=== PATIENT | male | born 1950 | race Two or more races ===

== ENCOUNTER 2020-06-01 14:55 | Inpatient (IN) | payer OTHER, MEDICAID ==
[~2020-06-01] VITALS: Ht 167.6 cm; Wt 104.0 kg
[2020-06-01 22:25] LABS: Basophils # (auto) 0 10 ^3/uL (0-0.2); Basophils % (auto) 0.3 % (0.0-2.0); Eosinophils # (auto) 0.1 10 ^3/uL (0-0.8); Eosinophils % (auto) 1.5 % (0.0-7.0); Hemoglobin 12.8 g/dL (13.5-17.5); Lymphocytes # (auto) 0.6 10 ^3/uL (0.4-5.4); Lymphocytes % (auto) 13.4 % (10.0-50.0); Mean Corpuscular Hemoglobin 35.5 pg (28.0-32.0); Mean Corpuscular Hgb Conc. 33.7 g/dL (32.0-36.0); Mean Corpuscular Volume 105.5 fL (80.0-100.0); Monocytes # (auto) 0.7 10 ^3/uL (0-1.3); Monocytes % (auto) 14.8 % (0.0-12.0); Neutrophils # (auto) 3.3 10 ^3/uL (1.6-8.6); Nucleated Red Blood Cells % 0.1 %; Platelet Count (auto) 103 10^3/uL (140-450); Red Blood Cells 3.61 10^6/uL (4.5-5.90); Red Cell Distribution Width 15.1 % (11.8-14.3); White Blood Cell 4.7 10^3/uL (4.4-10.8)
[2020-06-01 22:41] LABS: Albumin 2.7 g/dL (3.4-5.0); Anion Gap 5 (5-15); Blood Urea Nitrogen 50 mg/dL (7-18); Calcium 9.5 mg/dL (8.5-10.1); Carbon Dioxide 32 mmol/L (21-32); Chloride 93 mmol/L (98-107); Glucose 221 mg/dL (74-106); Sodium 130 mmol/L (136-145)
[2020-06-01 22:43] LABS: BUN/Creatinine Ratio 21.3; GFR African American 35 mL/min; GFR Non-African American 29 mL/min
[2020-06-01 22:49] LABS: Alanine Aminotransferase 41 U/L (16-61); Alkaline Phosphatase 237 U/L (45-117); Aspartate Aminotransferase 62 U/L (15-37); Bilirubin, Total 2.1 mg/dL (0.2-1.0); Total Protein 6.5 g/dL (6.4-8.2)
[2020-06-01 23:13] LABS: INR 1.19 (0.9-1.15)
[2020-06-02] MEDS ORDERED: MORPHINE SULF INJ 2 MG/ML SYRINGE 1ML IV PRN (00:45)
[2020-06-02] MEDS ORDERED: NITROGLYCERIN 0.4 MG SL TAB SL PRN (00:45)
[2020-06-02] MEDS ORDERED: ONDANSETRON HCL 4 MG/2 ML VIAL IV PRN (00:45)
[2020-06-02 01:24] LABS: Lactic Acid w/Reflex 2.8 mmol/L (0.4-2.0)
[2020-06-02 01:29] LABS: Magnesium 2.5 mg/dL (1.6-2.6)
[2020-06-02 01:38] LABS: CRP High Sensitivity 6.55 mg/dL (< 0.3)
[2020-06-02] MEDS ORDERED: LACTULOSE 20Gm/30ML SOLN PO ONE (04:45)
--- NOTE | 2020-06-02 06:50 | NUR ---
Respiratory note: SEEN PT AT THIS TIME, FOUND PATIENT ON ROOM AIR, SLEEPING, NO DISTRESS. HR 93, RR 16, SPO2 86%. NO MDI'S AT BEDSIDE. WILL CALL PHARMACY
[2020-06-02] MEDS: ENOXAPARIN SOD 40 MG/0.4 ML SYRINGE SC SCH (11:40)
[2020-06-02] MEDS: DOXYCYCLINE 100MG/250ML 250 ML IV SCH ×2 (11:46→22:00)
[2020-06-02] MEDS: LACTULOSE 20Gm/30ML SOLN PO SCH (11:46)
[2020-06-02] MEDS: ASCORBIC ACID 1,000 MG TAB PO SCH (11:46)
[2020-06-02] MEDS: DexAMETHasone SOD PHOS 10MG/1ML VIAL INJ IV SCH (11:46)
--- NOTE | 2020-06-02 12:20 | NUR ---
WOUND CARE NOTE: IN TO SEE PATIENT AT THIS TIME PER WOUND CARE CONSULT REQUEST. PATIENT ADMITTED TO [facility] WITH DIAGNOSIS OF PNA, METABOLIC ENCEPHALOPATHY. CURRENT ELSA SCORE ASSESSED AT 10. PATIENT NOTED UPON ADMIT TO HAVE WOUNDS. WOUND CONSULT ORDERED. PATIENT IS INCONTINENT, WITH BROWN LIQUID STOOL NOTED, FOLLOWING ADMINISTRATION OF LACTULOSE PER MD ORDER. PERICARE/LINEN CHANGE GIVEN. PATIENT NOTED TO HAVE AN OLD SKIN TEAR TO THE RIGHT FOREARM, THAT IS RE-EPITHELIZING. APPLIED THERAHONEY, OPTIFOAM GENTLE DRESSING. PATIENT IS NOTED TO HAVE MILD MASD TO INTRAGLUTEAL SKIN. HE HAS A PARTIAL THICKNESS PRESSURE INJURY TO THE RIGHT SACRUM. APPLIED ZGUARD, OPTIFOAM GENTLE SACRAL DRESSING. WOUND PHOTOS TAKEN AT THIS TIME PER PROTOCOL. NO OTHER SKIN INTEGRITY ISSUES NOTED, SKIN/WOUND CARE PLAN IMPLEMENTED. RECOMMEND: FREQUENT TURN SCHEDULE Q 2 HOURS, PRN CONDITION PERMITS, WITH PRESSURE REDISTRIBUTION USING PILLOWS/WEDGES, HOSPITAL BED WHEN ONE BECOMES AVAILABLE; EOD/PRN DRESSING CHANGE TO RIGHT FOREARM; BID/PRN APPLICATION ZGUARD/OPTIFOAM GENTLE SACRAL DRESSING TO SACRAL WOUND; DIETARY CONSULT, SKIN/WOUND CARE PLAN, CONTINUED MONITORING BY WOUND CARE TEAM. Addendum: 06/02/20 at 1619 by Chitra Weathers RN Amended: Links added.
[2020-06-02] MEDS: CHOLECALCIFEROL (VITD3) 2,000 UNIT CAP PO SCH (14:37)
[2020-06-02] MEDS ORDERED: ZINC SULFATE 220mg CAP or TAB PO ONE (16:00)
[2020-06-02] MEDS ORDERED: FAMOTIDINE 20 MG TAB PO ONE (16:00)
[2020-06-02] MEDS ORDERED: DEXTROSE (50%) 50ML SYRG IV PRN (16:00)
[2020-06-02] MEDS: InsuLIN REG 1unit/0.01ml Soln (100units/ml) SC SCH (17:50)
[2020-06-02] MEDS: ACCU-CHEK COMFORT CURVE STRIP VI SCH (18:00)
[2020-06-02 23:45] VITALS: BP 110/65
--- NOTE | 2020-06-02 23:45 | NUR ---
Telemetry admit from ER CYNTHIA HICKMAN admitted to Telemetry unit after SBAR received. Patient oriented to SACHA LOBATO, RN primary RN, unit, room, bed, and unit policies regarding patient care and visiting hours. Patient now on continuous telemetry monitoring, tele box # 3 and telemetry reading on arrival to unit is SR-99. Patient placed on bedside oxygen (2L), weighed by bedscale and encouraged to call if they need something. Patient AOx1.
--- NOTE | 2020-06-03 | NUR ---
Admission Patient was not able to respond to admission question due to AOx1. Some admission question answered by H&P. Will endorse information to dayshift nurse.
[2020-06-03] MEDS: InsuLIN REG 1unit/0.01ml Soln (100units/ml) SC SCH ×4 (00:40→17:32)
[2020-06-03] MEDS: ACCU-CHEK COMFORT CURVE STRIP VI SCH ×4 (00:40→17:18)
[2020-06-03 05:00] VITALS: BP 100/58
--- NOTE | 2020-06-03 06:00 | NUR ---
Markham catheter insertion Patient assessed and determined to be in need of markham catheter. Order obtained from MD. Patient educated on catheter and reason for insertion. All questions answered. Markham catheter guage Kazakh inserted with clean sterile technique. Patient tolerated well.
--- NOTE | 2020-06-03 06:20 | NUR ---
UA Urine sample collected and sent to lab.
[2020-06-03 06:52] LABS: Urine WBC None Seen /hpf (0 - 3)
[2020-06-03 06:58] LABS: Basophils # (auto) 0 10 ^3/uL (0-0.2); Basophils % (auto) 0.1 % (0.0-2.0); Eosinophils # (auto) 0 10 ^3/uL (0-0.8); Hemoglobin 11.2 g/dL (13.5-17.5); INR 1.29 (0.9-1.15); Lymphocytes # (auto) 0.3 10 ^3/uL (0.4-5.4); Mean Corpuscular Hemoglobin 36.3 pg (28.0-32.0); Monocytes # (auto) 0.3 10 ^3/uL (0-1.3); Neutrophils # (auto) 2.8 10 ^3/uL (1.6-8.6); Nucleated Red Blood Cells % 0.1 %; Partial Thromboplastin Time 29.2 sec (23.0-31.2); White Blood Cell 3.4 10^3/uL (4.4-10.8)
[2020-06-03 07:02] LABS: Hematocrit 32.7 % (41.0-53.0); Lymphocytes % (auto) 9.2 % (10.0-50.0); Mean Corpuscular Hgb Conc. 34.3 g/dL (32.0-36.0); Mean Corpuscular Volume 105.9 fL (80.0-100.0); Monocytes % (auto) 8.7 % (0.0-12.0); Platelet Count (auto) 90 10^3/uL (140-450); Red Blood Cells 3.09 10^6/uL (4.5-5.90); Red Cell Distribution Width 15.2 % (11.8-14.3)
[2020-06-03 07:03] LABS: Potassium 4.7 mmol/L (3.5-5.1)
[2020-06-03 07:06] LABS: Urine Bacteria FEW /hpf (None Seen); Urine Blood Negative /uL (Negative); Urine Hyaline Cast MANY /lpf (0 - 2); Urine Specific Gravity 1.015 (1.001-1.035)
[2020-06-03 07:13] LABS: Albumin 2.4 g/dL (3.4-5.0); BUN/Creatinine Ratio 24.4; Calcium 9.9 mg/dL (8.5-10.1); Total Protein 6.1 g/dL (6.4-8.2)
[2020-06-03] MEDS: ALBUTEROL SULF HFA 90MCG INH 200DOSE IN PRN ×2 (07:23→21:48)
[2020-06-03 07:29] LABS: Alcohol, Urine < 3.0 mg/dL (0-10); Amphetamine Screen, Urine NEGATIVE (NEGATIVE); Barbiturate Scree,Urine NEGATIVE (NEGATIVE); Benzodiazephine Screen, Urine NEGATIVE (NEGATIVE); Cannabinoid Screen, Urine NEGATIVE (NEGATIVE); Cocaine Screen, Urine NEGATIVE (NEGATIVE); Opiate Scree,Urine POSITIVE (NEGATIVE); Phencyclidine Screen, Urine NEGATIVE (NEGATIVE)
--- NOTE | 2020-06-03 08:00 | NUR ---
OPENING SHIFT NOTE ASSUMED CARE OF PATIENT AWAKE AND ALERT TO SELF. PATIENT IS FOUND NAKED, WITH TELEMETRY BOX AND OXYGEN REMOVED. PATIENT RECONNECTED TO EVERYTHING AND REPOSITIONED FOR COMFORT. ATTEMPTED TO EDUCATE IMPORTANCE OF COMPLYING WITH OXYGEN THERAPY AND TELEMETRY MONITORING. BED IS IN LOWEST, LOCKED POSITION WITH SIDE RAILS UP X3, CALL LIGHT WITHIN REACH, AND BED ALARM ON FOR SAFETY. WILL CONTINUE TO MONITOR Q1H AND PRN.
--- NOTE | 2020-06-03 08:30 | NUR ---
SPOKE WITH FAMILY SPOKE WITH SON STEPHANIE. ALL QUESTIONS ANSWERED, VERBALIZED UNDERSTANDING.
[2020-06-03] MEDS: ENOXAPARIN SOD 40 MG/0.4 ML SYRINGE SC SCH (10:00)
[2020-06-03] MEDS: LACTULOSE 20Gm/30ML SOLN PO SCH (10:00)
[2020-06-03] MEDS: DOXYCYCLINE 100MG/250ML 250 ML IV SCH ×2 (10:54→22:01)
[2020-06-03] MEDS: FAMOTIDINE 20 MG TAB PO SCH (10:54)
[2020-06-03] MEDS: ZINC SULFATE 220mg CAP or TAB PO SCH (10:54)
[2020-06-03] MEDS: DexAMETHasone SOD PHOS 10MG/1ML VIAL INJ IV SCH (10:54)
[2020-06-03] MEDS: ASCORBIC ACID 1,000 MG TAB PO SCH (10:54)
[2020-06-03] MEDS: CHOLECALCIFEROL (VITD3) 2,000 UNIT CAP PO SCH (10:55)
[2020-06-03 13:00] VITALS: BP 127/58
--- NOTE | 2020-06-03 13:13 | NUR ---
Nutrition Assessment/Consult Notes Please refer to link for full assessment notes. Est Energy needs: 4586-6778 kcals (14-18 kcal/kgBW) Est Protein needs: 102-112 gms/day (1.0-1.1 gm/kgBW) Will continue to monitor and reassess prn. Addendum: 06/03/20 at [address] Amended: Links added.
[2020-06-03 17:00] VITALS: BP 111/54
--- NOTE | 2020-06-03 20:00 | NUR ---
Opening Shift Note Assumed care of patient, awake and alert to self. Reoriented patient to place, time, and situation, will continue to reorient patient as needed and throughout shift. Instructed on plan of care and encouraged patient to call for assistance as needed, will continue to reinforce education. Patient is on 2L/min NC, no sign/symptoms of distress noted or verbalized at this time. Bed is locked in lowest position, side rails x 3 are up, call light is within reach, bed alarm is on, and sitter at the bedside for safety precautions.
[2020-06-03 21:00] VITALS: BP 112/62
[2020-06-04] MEDS: InsuLIN REG 1unit/0.01ml Soln (100units/ml) SC SCH ×4 (00:51→17:00)
[2020-06-04 05:00] VITALS: BP 137/95
[2020-06-04] MEDS: ACCU-CHEK COMFORT CURVE STRIP VI SCH ×4 (05:36→17:00)
[2020-06-04 05:55] LABS: Basophils # (auto) 0 10 ^3/uL (0-0.2); Eosinophils # (auto) 0 10 ^3/uL (0-0.8); Hemoglobin 11.6 g/dL (13.5-17.5); Lymphocytes # (auto) 0.4 10 ^3/uL (0.4-5.4); Lymphocytes % (auto) 6.3 % (10.0-50.0); Monocytes # (auto) 0.4 10 ^3/uL (0-1.3); Neutrophils # (auto) 5.2 10 ^3/uL (1.6-8.6)
--- NOTE | 2020-06-04 06:00 | NUR ---
Wound Care Wound care performed to sacrum and right forearm as ordered by MD. Patient tolerated well.
[2020-06-04 06:06] LABS: Basophils % (auto) 0.1 % (0.0-2.0); Hematocrit 34.7 % (41.0-53.0); Mean Corpuscular Hemoglobin 35.2 pg (28.0-32.0); Mean Corpuscular Hgb Conc. 33.3 g/dL (32.0-36.0); Mean Corpuscular Volume 105.6 fL (80.0-100.0); Monocytes % (auto) 6.3 % (0.0-12.0); Neutrophils % (auto) 87.3 % (37.0-80.0); Nucleated Red Blood Cells % 0.2 %; Platelet Count (auto) 125 10^3/uL (140-450); Red Blood Cells 3.29 10^6/uL (4.5-5.90); Red Cell Distribution Width 15.5 % (11.8-14.3)
[2020-06-04 06:18] LABS: Potassium 5.3 mmol/L (3.5-5.1)
[2020-06-04 06:23] LABS: Albumin 2.7 g/dL (3.4-5.0); BUN/Creatinine Ratio 27.1; Calcium 10.2 mg/dL (8.5-10.1)
[2020-06-04 06:36] LABS: Bilirubin, Total 1.9 mg/dL (0.2-1.0); Total Protein 6.5 g/dL (6.4-8.2)
[2020-06-04] MEDS: ALBUTEROL SULF HFA 90MCG INH 200DOSE IN PRN ×2 (06:44→19:34)
[2020-06-04] MEDS: ASCORBIC ACID 1,000 MG TAB PO SCH (10:34)
[2020-06-04] MEDS: ZINC SULFATE 220mg CAP or TAB PO SCH (10:34)
[2020-06-04] MEDS: LACTULOSE 20Gm/30ML SOLN PO SCH (10:34)
[2020-06-04] MEDS: DexAMETHasone SOD PHOS 10MG/1ML VIAL INJ IV SCH (10:34)
[2020-06-04] MEDS: DOXYCYCLINE 100MG/250ML 250 ML IV SCH (10:34)
[2020-06-04] MEDS: FAMOTIDINE 20 MG TAB PO SCH (10:34)
[2020-06-04] MEDS: CHOLECALCIFEROL (VITD3) 2,000 UNIT CAP PO SCH (10:35)
[2020-06-04] MEDS: ENOXAPARIN SOD 40 MG/0.4 ML SYRINGE SC SCH (10:35)
--- NOTE | 2020-06-04 11:02 | NUR ---
Assessment Patient is a 70 year old male, patient was unable to speak with SW, SW called son Osei soto ([phone]). Per Osei soto, patient is alert and oriented prior to being admitted to [facility]. Per Osei soto, patient cognitive abilities are intact. Per Osei soto, patient need assistance with ADL's and ambulates with a walker. Per Osei soto, patient is a diabetic. Per Osei soto, patient is retired and receives social security as income. Per Osei soto, patient was receiving home health nurse three times a week from the [place]. Per Osei soto, patient will return home post discharge, patient has ([employer]) as transportation, patient needs 24-48 hours prior to discharge to set up transportation needs for post discharge. Per Osei soto, is requesting Advance Directive forms for patient. Discharge planning: Patient will return home post discharge, patient will follow up care with his PCP post discharge. Patient has all diabetic supplies for home care post discharge. SW will provide patient with Advance Directive forms prior to discharge. CM will verify eligibility for patient transportation with [employer] 24 - 48 hours prior to discharge and arrange pick remover time. Addendum: 06/04/20 at 1113 by VIBHA LI Amended: Links added.
[2020-06-04] MEDS: AZITHROMYCIN 500MG/ 250ML 250 ML IV SCH (17:07)
[2020-06-04] MEDS: cefTRIAXone 1GM/50ML D5W 50 ML IV SCH (17:08)
[2020-06-04 22:00] VITALS: BP 115/76
[2020-06-05] MEDS: InsuLIN REG 1unit/0.01ml Soln (100units/ml) SC SCH ×4 (00:03→17:47)
[2020-06-05] MEDS: ACCU-CHEK COMFORT CURVE STRIP VI SCH ×4 (00:03→17:46)
[2020-06-05 05:00] VITALS: BP 111/64
[2020-06-05] MEDS: ALBUTEROL SULF HFA 90MCG INH 200DOSE IN PRN (06:29)
[2020-06-05 09:00] VITALS: BP 130/66
[2020-06-05] MEDS: cefTRIAXone 1GM/50ML D5W 50 ML IV SCH (10:24)
[2020-06-05] MEDS: ASCORBIC ACID 1,000 MG TAB PO SCH (10:25)
[2020-06-05] MEDS: FAMOTIDINE 20 MG TAB PO SCH (10:25)
[2020-06-05] MEDS: ZINC SULFATE 220mg CAP or TAB PO SCH (10:25)
[2020-06-05] MEDS: ENOXAPARIN SOD 40 MG/0.4 ML SYRINGE SC SCH (10:25)
[2020-06-05] MEDS: CHOLECALCIFEROL (VITD3) 2,000 UNIT CAP PO SCH (10:25)
[2020-06-05] MEDS: LACTULOSE 20Gm/30ML SOLN PO SCH (10:25)
[2020-06-05] MEDS: AZITHROMYCIN 500MG/ 250ML 250 ML IV SCH (10:25)
[2020-06-05] MEDS: DexAMETHasone SOD PHOS 10MG/1ML VIAL INJ IV SCH (10:26)
[2020-06-05 11:46] LABS: Basophils # (auto) 0 10 ^3/uL (0-0.2); Basophils % (auto) 0.1 % (0.0-2.0); Eosinophils # (auto) 0 10 ^3/uL (0-0.8); Hematocrit 35.9 % (41.0-53.0); Lymphocytes # (auto) 0.3 10 ^3/uL (0.4-5.4); Lymphocytes % (auto) 5.3 % (10.0-50.0); Mean Corpuscular Hemoglobin 35.7 pg (28.0-32.0); Mean Corpuscular Hgb Conc. 33.5 g/dL (32.0-36.0); Mean Corpuscular Volume 106.5 fL (80.0-100.0); Monocytes # (auto) 0.5 10 ^3/uL (0-1.3); Monocytes % (auto) 8.4 % (0.0-12.0); Neutrophils # (auto) 4.7 10 ^3/uL (1.6-8.6); Neutrophils % (auto) 86.2 % (37.0-80.0); Nucleated Red Blood Cells % 0.1 %; Platelet Count (auto) 106 10^3/uL (140-450); Red Blood Cells 3.37 10^6/uL (4.5-5.90); Red Cell Distribution Width 15.4 % (11.8-14.3); White Blood Cell 5.4 10^3/uL (4.4-10.8)
[2020-06-05 11:58] LABS: Potassium 4.8 mmol/L (3.5-5.1)
[2020-06-05 12:04] LABS: BUN/Creatinine Ratio 25.6; Calcium 10.4 mg/dL (8.5-10.1)
[2020-06-05] MEDS ORDERED: TAM04C PO (12:58)
[2020-06-05] MEDS ORDERED: INSU1INJ26 SC (12:58)
[2020-06-05] MEDS ORDERED: CARV3.1240 PO (12:59)
[2020-06-05] MEDS ORDERED: SPIR50TA2 PO (12:59)
[2020-06-05 13:00] VITALS: BP 118/67
[2020-06-05] MEDS ORDERED: FURO1TAB31 PO (13:00)
[2020-06-05] MEDS ORDERED: DEXTROSE (50%) 50ML SYRG IV PRN (14:30)
[2020-06-05 17:00] VITALS: BP 90/74
[2020-06-05] MEDS: INSULIN 70/30 1unit/0.01ml Susp (100units/ml) SC SCH (17:48)
[2020-06-05] MEDS: TAMSULOSIN HYDROCHLORIDE 0.4 MG CAP PO SCH (18:27)
--- NOTE | 2020-06-05 19:30 | NUR ---
Opening Shift Note Assumed care of patient, awake and alert. No S/S of distress/SOB or pain. Instructed on POC and to call for assist PRN, will continue to monitor for changes Q1hr and PRN.
[2020-06-05 20:00] VITALS: BP 124/64
[2020-06-06] MEDS: ACCU-CHEK COMFORT CURVE STRIP VI SCH ×4 (00:38→17:46)
[2020-06-06] MEDS: InsuLIN REG 1unit/0.01ml Soln (100units/ml) SC SCH ×4 (00:38→18:06)
[2020-06-06 07:41] LABS: Albumin 2.7 g/dL (3.4-5.0); Calcium 11.1 mg/dL (8.5-10.1)
[2020-06-06 07:44] LABS: BUN/Creatinine Ratio 28.7; Total Protein 6.6 g/dL (6.4-8.2)
[2020-06-06 08:24] LABS: Basophils # (auto) 0 10 ^3/uL (0-0.2); Basophils % (auto) 0.1 % (0.0-2.0); Eosinophils # (auto) 0 10 ^3/uL (0-0.8); Hemoglobin 12.4 g/dL (13.5-17.5); Lymphocytes # (auto) 0.3 10 ^3/uL (0.4-5.4); Mean Corpuscular Volume 106.2 fL (80.0-100.0); Monocytes # (auto) 0.4 10 ^3/uL (0-1.3); Neutrophils # (auto) 4.2 10 ^3/uL (1.6-8.6); Nucleated Red Blood Cells % 0.2 %; Platelet Count (auto) 99 10^3/uL (140-450); White Blood Cell 4.9 10^3/uL (4.4-10.8)
[2020-06-06 08:26] LABS: Hematocrit 37.7 % (41.0-53.0); Lymphocytes % (auto) 7.1 % (10.0-50.0); Mean Corpuscular Hemoglobin 34.8 pg (28.0-32.0); Mean Corpuscular Hgb Conc. 32.8 g/dL (32.0-36.0); Monocytes % (auto) 7.6 % (0.0-12.0); Neutrophils % (auto) 85.2 % (37.0-80.0); Red Blood Cells 3.55 10^6/uL (4.5-5.90); Red Cell Distribution Width 15.2 % (11.8-14.3)
[2020-06-06] MEDS: cefTRIAXone 1GM/50ML D5W 50 ML IV SCH (08:41)
[2020-06-06] MEDS: INSULIN 70/30 1unit/0.01ml Susp (100units/ml) SC SCH ×2 (08:41→18:07)
[2020-06-06 09:00] VITALS: BP_SYST 117; BP_SYST 133; BP_DIAS 67; BP_DIAS 68
[2020-06-06] MEDS: FAMOTIDINE 20 MG TAB PO SCH (10:20)
[2020-06-06] MEDS: LACTULOSE 20Gm/30ML SOLN PO SCH (10:20)
[2020-06-06] MEDS: CHOLECALCIFEROL (VITD3) 2,000 UNIT CAP PO SCH (10:20)
[2020-06-06] MEDS: AZITHROMYCIN 500MG/ 250ML 250 ML IV SCH (10:20)
[2020-06-06] MEDS: DexAMETHasone SOD PHOS 10MG/1ML VIAL INJ IV SCH (10:20)
[2020-06-06] MEDS: ENOXAPARIN SOD 40 MG/0.4 ML SYRINGE SC SCH (10:20)
[2020-06-06] MEDS: ASCORBIC ACID 1,000 MG TAB PO SCH (10:21)
[2020-06-06] MEDS: ZINC SULFATE 220mg CAP or TAB PO SCH (10:21)
--- NOTE | 2020-06-06 11:40 | NUR ---
Nutrition Followup Note WT: 97.8 kg (+ 3 edema) Pt is positive for COVID. Pt is currently on CCHO 60 gm hepatic diet chop fine with inadequate PO of < 50% x 3 per RN doc. Est Energy needs IBW 64 [id number] kcals (25-30kcal/kgIBW), Est Protein needs: 38-51 gms/day (0.6-0.8 gm/kgIBW r.t elev ammonia). Will continue to monitor and reassess prn. Will reassess per dry body wt LABS: BUN 43 H CREAT 1.5 H AMMONIA 36 H CA 11.1 H GLU 226 H MARCELL 2.0 H ALB 2.7 L GI: Pt had 1 BM today per RN doc. BS: 11 high risk. Refer to wound assessment report for further details PES: 1) Obesity aeb BMI of 36.3 kg/m2 r/t energy intake in excess of energy needs 2) Altered nutrition related lab values aeb elev RFTs, low GFR, hyperglycemia, hypoalbuminemia r/t current/chronic medical condition Comments: Will continue to monitor PO status, skin status, pertinent labs and weight trends. Will f/u in 3-5 days Rec: 1) consider Glucerna 1 carton bid as PO is low. 2) continue assistance with meals. 3) continue current plan of care
[2020-06-06 13:00] VITALS: BP_SYST 119; BP_SYST 132; BP_DIAS 60; BP_DIAS 83
[2020-06-06 17:00] VITALS: BP 115/65
[2020-06-06] MEDS: TAMSULOSIN HYDROCHLORIDE 0.4 MG CAP PO SCH (18:07)
[2020-06-06 20:00] VITALS: BP 125/72
[2020-06-06 22:00] VITALS: BP 125/72
[2020-06-07] MEDS: ACCU-CHEK COMFORT CURVE STRIP VI SCH ×4 (00:29→18:58)
[2020-06-07] MEDS: InsuLIN REG 1unit/0.01ml Soln (100units/ml) SC SCH ×4 (00:34→18:57)
[2020-06-07 05:00] VITALS: BP 130/64
--- NOTE | 2020-06-07 07:30 | NUR ---
Opening Shift Note Assumed care of patient, awake and alert. Pt mumbles words are not understandable, he attempts to speak however is not comprehensible. Instructed on POC and to call for assist PRN, will continue to monitor for changes Q1hr and PRN. Sitter at bedside. No signs of distress noted.
[2020-06-07 07:38] LABS: Potassium 4.7 mmol/L (3.5-5.1)
[2020-06-07 07:46] LABS: Albumin 2.5 g/dL (3.4-5.0); BUN/Creatinine Ratio 31.2; Bilirubin, Total 1.9 mg/dL (0.2-1.0); Calcium 10.4 mg/dL (8.5-10.1); Total Protein 6.2 g/dL (6.4-8.2)
[2020-06-07 08:56] VITALS: BP 129/80
[2020-06-07] MEDS: DexAMETHasone SOD PHOS 10MG/1ML VIAL INJ IV SCH (10:00)
[2020-06-07] MEDS: FAMOTIDINE 20 MG TAB PO SCH ×2 (10:00→21:15)
[2020-06-07] MEDS: ASCORBIC ACID 1,000 MG TAB PO SCH (10:00)
[2020-06-07] MEDS: LACTULOSE 20Gm/30ML SOLN PO SCH (10:00)
[2020-06-07] MEDS: AZITHROMYCIN 250 MG TAB PO SCH (10:00)
[2020-06-07] MEDS: ZINC SULFATE 220mg CAP or TAB PO SCH (10:00)
[2020-06-07] MEDS: ENOXAPARIN SOD 40 MG/0.4 ML SYRINGE SC SCH ×2 (10:01→21:15)
[2020-06-07] MEDS: cefTRIAXone 1GM/50ML D5W 50 ML IV SCH (10:02)
--- NOTE | 2020-06-07 10:07 | NUR ---
MEDICATION ATTEMPTED TO GIVE PT HIS PO MEDS, PT SPIT THE MEDICATIONS OUT SEVERAL TIMES. PT REFUSES TO TAKE PO MEDS.
[2020-06-07] MEDS: INSULIN 70/30 1unit/0.01ml Susp (100units/ml) SC SCH ×2 (10:28→18:57)
[2020-06-07 13:00] VITALS: BP 101/60
--- NOTE | 2020-06-07 14:20 | NUR ---
DORIS BECKER MADE AWARE PT SPIT OUT ALL HIS PO MEDS THIS MORNING. NO NEW ORDERS RECEIVED REGARDING THIS MATTER.
[2020-06-07 17:00] VITALS: BP 124/62
[2020-06-07] MEDS: TAMSULOSIN HYDROCHLORIDE 0.4 MG CAP PO SCH (18:53)
--- NOTE | 2020-06-07 19:15 | NUR ---
CHANGE OF SHIFT REPORT GIVEN TO FOOD SPECIALIST RN.PT STABLE AT THIS TIME. SITTER AT BEDSIDE.
--- NOTE | 2020-06-07 19:30 | NUR ---
Opening Shift Note Assumed care of patient, awake and alert. Oriented only to self. No S/S of distress/SOB or pain. Instructed on POC and to call for assist PRN, will continue to monitor for changes Q1hr and PRN.
[2020-06-07 20:00] VITALS: BP 121/65
[2020-06-07 22:09] VITALS: BP 121/65
[2020-06-08] MEDS: ACCU-CHEK COMFORT CURVE STRIP VI SCH ×5 (00:07→23:44)
[2020-06-08] MEDS: InsuLIN REG 1unit/0.01ml Soln (100units/ml) SC SCH ×5 (00:12→23:38)
[2020-06-08 05:00] VITALS: BP 119/62
[2020-06-08] MEDS: AZITHROMYCIN 250 MG TAB PO SCH (08:31)
[2020-06-08] MEDS: ENOXAPARIN SOD 40 MG/0.4 ML SYRINGE SC SCH ×2 (08:31→20:33)
[2020-06-08] MEDS: INSULIN 70/30 1unit/0.01ml Susp (100units/ml) SC SCH ×2 (08:32→18:52)
[2020-06-08] MEDS: ASCORBIC ACID 1,000 MG TAB PO SCH (08:32)
[2020-06-08] MEDS: cefTRIAXone 1GM/50ML D5W 50 ML IV SCH (08:32)
[2020-06-08] MEDS: DexAMETHasone SOD PHOS 10MG/1ML VIAL INJ IV SCH (08:33)
[2020-06-08] MEDS: LACTULOSE 20Gm/30ML SOLN PO SCH (08:33)
[2020-06-08] MEDS: ZINC SULFATE 220mg CAP or TAB PO SCH (08:34)
[2020-06-08] MEDS: FAMOTIDINE 20 MG TAB PO SCH ×2 (08:34→20:34)
[2020-06-08 09:00] VITALS: BP 153/87
[2020-06-08 13:00] VITALS: BP 127/64
--- NOTE | 2020-06-08 15:07 | NUR ---
D/C Plan Left message at [facility] [phone], regarding needing authorization to transfer the patient to a SNF
--- NOTE | 2020-06-08 15:18 | NUR ---
Faxed clinicals requesting authorization for SNF to [facility],
--- NOTE | 2020-06-08 16:35 | NUR ---
Called [facility] [phone] and spoke with Clara HEADLEY states it is pending Nurse review, stated I will call back tomorrow
[2020-06-08 17:00] VITALS: BP 112/63
[2020-06-08] MEDS: TAMSULOSIN HYDROCHLORIDE 0.4 MG CAP PO SCH (18:52)
--- NOTE | 2020-06-08 19:35 | NUR ---
Opening Shift Note Assumed care of patient, awake and alert. Patient on 3L nasal cannula with a oxygen saturation of 95%. No S/S of distress/SOB or pain. Bed locked in the lowest position, side rails up X2, call light within reach. Instructed on POC and to call for assist PRN, will continue to monitor for changes Q1hr and PRN.
[2020-06-08 22:00] VITALS: BP 129/70
--- NOTE | 2020-06-08 22:11 | NUR ---
ROUNDS: PATIENT LAYING IN THE LOW FOWLERS POSITION WITH EYES OPEN, ALERT AND ORIENTED TO PERSON. 3L NASAL CANNULA, MILLIGAN CATHETER DRAINING WITH NO SIGNS OF DISTRESS/ SOB AT THIS TIME.
--- NOTE | 2020-06-09 02:02 | NUR ---
ROUNDS: PATIENT LAYING IN THE LOW FOWLERS POSITION WITH EYES OPEN. NO SIGNS OF DISTRESS/ SOB AT THIS TIME/
[2020-06-09 05:00] VITALS: BP 151/87
[2020-06-09] MEDS: InsuLIN REG 1unit/0.01ml Soln (100units/ml) SC SCH ×3 (05:30→17:59)
[2020-06-09] MEDS: ACCU-CHEK COMFORT CURVE STRIP VI SCH ×3 (05:30→17:59)
[2020-06-09] MEDS: INSULIN 70/30 1unit/0.01ml Susp (100units/ml) SC SCH ×2 (08:35→17:58)
[2020-06-09 09:00] VITALS: BP 118/70
[2020-06-09] MEDS: DexAMETHasone SOD PHOS 10MG/1ML VIAL INJ IV SCH (09:22)
[2020-06-09] MEDS: LACTULOSE 20Gm/30ML SOLN PO SCH (09:22)
[2020-06-09] MEDS: cefTRIAXone 1GM/50ML D5W 50 ML IV SCH (09:22)
[2020-06-09] MEDS: ZINC SULFATE 220mg CAP or TAB PO SCH (09:22)
[2020-06-09] MEDS: ASCORBIC ACID 1,000 MG TAB PO SCH (09:23)
[2020-06-09] MEDS: AZITHROMYCIN 250 MG TAB PO SCH (09:23)
[2020-06-09] MEDS: FAMOTIDINE 20 MG TAB PO SCH ×2 (09:23→23:11)
[2020-06-09] MEDS: ENOXAPARIN SOD 40 MG/0.4 ML SYRINGE SC SCH ×2 (09:23→23:12)
--- NOTE | 2020-06-09 09:29 | NUR ---
Called [facility] [phone] and spoke with Antonella HEADLEY stated she needed the Discharge order and Discharge summary, express to her I would talk with the MD and then fax it to her after he writes them.
--- NOTE | 2020-06-09 11:00 | NUR ---
WOUND CARE NOTE: IN TO SEE PATIENT AT THIS TIME FOR WOUND RE-ASSESSMENT. PATIENT ON [facility], AIRBORNE ISOLATION. HE IDS RESTING ON AIR MATTRESS, CURRENT ELSA SCORE IS 11. PATIENT CONTINUES TO BE MAX ASSIST FOR ALL OF HIS ADL'S INCLUDING TURNING/REPOSITIONING. PATIENT CURRENTLY INCONTINENT OF BROWN PASTY STOOL. LANCE CARE GIVEN, LINEN CHANGE. PATIENT'S SACRAL ULCER HAS RESOLVED. SKIN IS INTACT, LIGHT RED, BLANCHABLE. HE CONTINUES TO HAVE MILD MASD, NO SKIN EROSION. SKIN/WOUND CARE PLAN UPDATED. RECOMMEND: CONTINUATION WITH ALL WOUND CARE ORDERS PREVIOUSLY PRESCRIBED BY MD. WOUND CARE TEAM WILL CONINTUE TO MONITOR. Addendum: 06/09/20 at 1448 by Chitra Weathers RN Amended: Links added.
[2020-06-09 11:38] LABS: Potassium 5.2 mmol/L (3.5-5.1)
[2020-06-09 11:44] LABS: BUN/Creatinine Ratio 29.3; Calcium 10.5 mg/dL (8.5-10.1)
[2020-06-09 13:00] VITALS: BP 129/73
--- NOTE | 2020-06-09 13:00 | NUR ---
WOUND CARE NOTE: ORDERED BARIATRIC BED WITH FOAM MATTRESS AT THIS TIME. PATIENT TO BE PLACED, PENDING DELIVERY BY [facility] Addendum: 06/10/20 at 0709 by Chitra Weathers RN wrong patient
--- NOTE | 2020-06-09 13:00 | NUR ---
DR MENDENHALL AT BEDSIDE. UPDATED HIM ON PATIENT'S CURRENT STATUS. NO NEW ORDERS AT THIS TIME. CONTINUE CARE.
--- NOTE | 2020-06-09 14:58 | NUR ---
Nutrition Followup Note WT: 105.4 kg (pt with 3+ lower extremity edema) Pt is positive for COVID. Pt is currently on CCHO 60 gm hepatic diet chop fine with inadequate PO of < 20% x 6 per RN doc. Est Energy needs IBW 64 [id number] kcals (25-30kcal/kgIBW), Est Protein needs: 38-51 gms/day (0.6-0.8 gm/kgIBW r.t elev ammonia). Will continue to monitor and reassess prn. Will reassess per dry body wt LABS: BUN 39 H CREAT 1.33 H GLU 171 H ALB 2.5 L GI: Pt had 1 BM on 06/08 per RN doc. BS: 11 high risk. Refer to wound assessment report for further details PES: 1) Obesity aeb BMI of 36.3 kg/m2 r/t energy intake in excess of energy needs 2) Altered nutrition related lab values aeb elev RFTs, low GFR, hyperglycemia, hypoalbuminemia r/t current/chronic medical condition Comments: Will continue to monitor PO status, skin status, pertinent labs and weight trends. Will f/u in 3-5 days Rec: 1) consider Glucerna 1 carton bid as PO is low. 2) continue assistance with meals. 3) continue current plan of care
[2020-06-09 16:57] VITALS: BP 142/79
[2020-06-09] MEDS: TAMSULOSIN HYDROCHLORIDE 0.4 MG CAP PO SCH (17:57)
--- NOTE | 2020-06-09 19:44 | NUR ---
ENDORSED CARE TO NOC SHIFT RN
[2020-06-09 23:53] VITALS: BP 107/65
[2020-06-10] MEDS: ACCU-CHEK COMFORT CURVE STRIP VI SCH ×4 (00:05→18:00)
[2020-06-10] MEDS: InsuLIN REG 1unit/0.01ml Soln (100units/ml) SC SCH ×4 (00:15→18:00)
[2020-06-10] MEDS ORDERED: TEMAZEPAM 15 MG CAP PO ONE (01:15)
[2020-06-10 06:50] VITALS: BP 141/60
[2020-06-10] MEDS: ALBUTEROL SULF HFA 90MCG INH 200DOSE IN PRN (07:03)
--- NOTE | 2020-06-10 07:23 | NUR ---
End of Shift Note Endorsed care to dayshift RN. At this time patient has no s/s of distress or SOB.
[2020-06-10 09:00] VITALS: BP 114/70
[2020-06-10] MEDS: cefTRIAXone 1GM/50ML D5W 50 ML IV SCH (09:24)
[2020-06-10] MEDS: LACTULOSE 20Gm/30ML SOLN PO SCH (09:25)
[2020-06-10] MEDS: ZINC SULFATE 220mg CAP or TAB PO SCH (09:25)
[2020-06-10] MEDS: DexAMETHasone SOD PHOS 10MG/1ML VIAL INJ IV SCH (09:25)
[2020-06-10] MEDS: FAMOTIDINE 20 MG TAB PO SCH (09:26)
[2020-06-10] MEDS: ASCORBIC ACID 1,000 MG TAB PO SCH (09:26)
--- NOTE | 2020-06-10 09:26 | NUR ---
D/C Planning Faxed Discharge Summary, transfer to SNF Order to [facility] [phone]
[2020-06-10] MEDS: AZITHROMYCIN 250 MG TAB PO SCH (09:27)
[2020-06-10] MEDS: ENOXAPARIN SOD 40 MG/0.4 ML SYRINGE SC SCH (09:27)
[2020-06-10] MEDS: INSULIN 70/30 1unit/0.01ml Susp (100units/ml) SC SCH ×2 (10:00→18:00)
--- NOTE | 2020-06-10 11:55 | NUR ---
Called [facility] [phone] Ext. [phone] spoke with Antonella HEADLEY, ask if she had received the clinicals for the transfer to SNF, stated she had not looked, but will get her associate to see if it was there, ask what facility, they are contracted with, stated [facility], [facility], [facility]. Stated to call if any one of them accepted the patient, called Tigist WATSON and made aware of the facilities, the insurance company are contracted with, and to see if the family was okay with him going down the hill to a facility.
[2020-06-10 13:00] VITALS: BP 122/72
--- NOTE | 2020-06-10 14:03 | NUR ---
Spoke with son Osei in regards of dad being transfer to SNF, Osei agreed for dad to transfer to [facility] facility. Per Yumiko, , from [facility], she has accepted patient, his room is 114A. SHIRLEY notified Rodolfo RN, that patient is accepted for SNF and transfer, SW provide Rodolfo RN phone number to [facility] ([phone]). SW notified Marilu Souza CM, to arrange transportation, Per Yumiko, patient can arrive any time after 6 pm.
--- NOTE | 2020-06-10 14:42 | NUR ---
Called , spoke with Bautista Toure, express to him that I need auth for transportation for the patient. Stated he will call the CM and have her give me a call back with auth. Gave call back information. Called Antonella HEADLEY at [facility] [phone], and gave auth. for the SNF # [id number]. Called SHIRLEY Escoto and made aware. Antonella will call back with transportation information, when it is arranged.
--- NOTE | 2020-06-10 15:02 | NUR ---
Per Yumiko, Dr. Santoyo is the accepting MD at [facility].
--- NOTE | 2020-06-10 15:42 | NUR ---
Received a call from Antonella HEADLEY at [facility] stated the transportation for the patient is [facility] , AUTH # [id number]. Called [employer] WATSON and made her aware.
--- NOTE | 2020-06-10 15:49 | NUR ---
Per Torrie from [facility] ([phone]), patient schedule black pickler time is between 17:00 - 18:00 tonight. notified Rodolfo WINTERS, of black pickler time.
[2020-06-10 17:00] VITALS: BP 116/64
[2020-06-10] MEDS: TAMSULOSIN HYDROCHLORIDE 0.4 MG CAP PO SCH (18:00)
--- NOTE | 2020-06-10 18:09 | NUR ---
Discharge instructions given as ordered. Encourage to follow up with PMD as instructed. All questions and concerns addressed. Patient verbalized understanding. IV removed with catheter intact, pressure dressing applied, markham catheter left in place. Telemetry unit returned to ICU. Patient taken by transportation with o2 via nasal cannula 2L via gerni with all personal belongings, accompanied by transport staff No distress noted at time of departure.
--- NOTE | 2020-06-10 18:30 | NUR ---
REPORT ATTEMPTED THIS RN CALLED TO GIVE [phone] LEFT ON HOLD FOR 15 MINUTES. UNABLE TO GIVE REPORT.
[2020-06-11] MEDS ORDERED: DexAMETHasone 4 MG TAB PO SCH (10:00)
== END 2020-06-10 18:09 | DRG 177 ==
LOC: ER 14:55 → EDBD 14:55 → TELE 14:56 → TELE-EAST 06-02 23:24 → TELE-E-ADS 06-02 23:37 → TELE-EAST 06-03 08:37 → TELE-E-ADS 06-03 08:38
PROVIDERS: ADMIT Nurse Practitioner; ATTEND Internal Medicine
DX: U07.1 COVID-19 (principal); J12.89 Other viral pneumonia; G92 Toxic encephalopathy; N17.0 Acute kidney failure with tubular necrosis; J96.01 Acute respiratory failure with hypoxia; G93.1 Anoxic brain damage, not elsewhere classified; I13.0 Hypertensive heart and chronic kidney disease with heart failure and stage 1 through stage 4 chronic kidney disease, or unspecified chronic kidney disease; J44.0 Chronic obstructive pulmonary disease with (acute) lower respiratory infection; K74.60 Unspecified cirrhosis of liver; D53.9 Nutritional anemia, unspecified; E11.22 Type 2 diabetes mellitus with diabetic chronic kidney disease; E66.9 Obesity, unspecified; F17.200 Nicotine dependence, unspecified, uncomplicated; I25.10 Atherosclerotic heart disease of native coronary artery without angina pectoris; I48.91 Unspecified atrial fibrillation; I50.9 Heart failure, unspecified; K72.90 Hepatic failure, unspecified without coma; K76.0 Fatty (change of) liver, not elsewhere classified; N18.9 Chronic kidney disease, unspecified; Z83.3 Family history of diabetes mellitus; Z90.49 Acquired absence of other specified parts of digestive tract; Z95.1 Presence of aortocoronary bypass graft; Z99.81 Dependence on supplemental oxygen; Z79.899 Other long term (current) drug therapy; Z68.37 Body mass index [BMI] 37.0-37.9, adult
CPT/HCPCS: 36415; 70450; 71045; 74176; 80048; 80053; 80307; 81001; 82140; 82728; 82962; 83036; 83605; 83615; 83735; 83970; 84443; 84484; 85025; 85379; 85610; 85730; 86141; 87426; 93005; 93306; 94640; 96372; 96374; 97110; 97163; 97530; 99291; G0378; J0696; J1100; J1815; J3490